=== PATIENT | male | born 1990 | race Hispanic/Latino ===

== ENCOUNTER 2019-07-29 16:22 | Emergency (ER) | payer BC ==
--- OUTSIDE RECORDS SUMMARY | 2019-07-29 16:25 | XMS REPORT ---
:1990 Author Organization [facility] Address [address] [place] [address] Care Team Providers Name Role Phone UNKNOWN, REFFERING Primary Care Provider Unavailable ROSA WATKINS Unavailable Unavailable Payers Payer Name Policy Type Policy Number Effective Date Expiration Date Problems This patient has no known problems. Allergies, Adverse Reactions, Alerts Allergy Allergy Status Severity Reaction(s) Onset Inactive Treating Comments Name Type Date Date Clinician No Known DA Active U 2018-10 Allergies -11 00:00:0 0 Medications This patient has no known medications. Encounters Start End Encounter Admission Attending Care Care Encounter Date/Time Date/Time Type Type Clinicians Facility Department ID 2017-08-23 2017-08-23 Emergency E ROSA WATKINS [facility] [id number] 07:59:00 07:59:00 Results Test Description Test Time Test Comments Text Results Atomic Results Result Comments STOMACH,RESECTION 2019-03-09 RUN DATE: NOT TUMOR 17:02:00 03/09/19 [place] - Lab PAGE 1 RUN TIME: 1702 Specimen Inquiry RUN USER: INTERFACE PATIENT: DOMENIOC CEJA LOC: [place] #: [id number] AGE/SX: 28/M ROOM: [facility] RE03/07/19REG DR: Chaparro Bai MD : 86 BED: A DIS: 03/09/19 STATUS: DIS IN TLOC: SPEC #: [id number] RECD: 03/07/19 STATUS: MEJIA [facility] # : [id number] JAMES: 03/07/[address] [facility] [address]: Chaparro Bai MD ENTERED: 03/07/19 SP TYPE: STOM NOT OTHR DR: Ernesto Willams MD, [place] A MDORDERED: GROSS COPIES TO: Chaparro Bai MD [address] [place] [address] Ernesto Willams MD [address] [place], [place] [id number] [place] [address] [place] [address] [address] [place], [place] [address] PROCEDURES: GROSS (03/09/19) TISSUES: STOMACH, NOS - PORTION CLINICAL HISTORY COLLECTION DATE: 03/07/19 [facility] FINAL DIAGNOSIS Stomach, sleeve gastrectomy: UNREMARKABLE GASTRIC MUCOSA AND MUSCULAR WALL RRSanthosh/mike Harman [id number] CONTINUED ON NEXT PAGE RUN DATE: 03/09/19 [place] [facility] PAGE 2 RUN TIME: 1702 Specimen Inquiry RUN USER: INTERFACE SPEC #: [id number] PATIENT: DOMENICO CEJA #[id number] (Continued) MACROSCOPIC The specimen is received in formalin, labeled with the patient's name, identified as "portion of stomach". It consists of a portion of stomach which measures 21 x 3.5 x 2 cm with a wall thickness of 0.5 cm. It is stapled along the mucosal margins. The serosal surface is unremarkable. The mucosal folds are unremarkable appearing. A sample of the specimen is submitted for microscopic examination in a single cassette. GROSS PERFORMED AT [facility] [address] [place] [address] [phone] MICROSCOPIC All of the stains, including any controls performed, stain appropriately. MICROSCOPIC PERFORMED AT [facility] [address] [place] [address] [phone])[phone] PERFORMING SITE Diagnosis performed at: [facility] [address] [place] [address] Signed SIGNATURE ON FILE Chandu Caceres MD 03/09 1702 END OF REPORT BASIC METABOLIC PANEL 2019-03-08 05:25:00 Test Item Value Reference Range Comments SODIUM (test code=NA) 137 mmol/L 136-145 POTASSIUM (test code=K) 3.7 mmol/L 3.5-5.1 CHLORIDE (test code=CL) 102.0 mmol/L 98-107 CARBON DIOXIDE (test code=CO2) 26.0 mmol/L 21-32 ANION GAP (test code=GAP) 12.7 10-20 GLUCOSE (test code=GLU) 112 mg/dL 74-106 BLOOD UREA NITROGEN (test 9 mg/dL 7-18 code=BUN) GLOMERULAR FILTRATION RATE (test > 60 mL/min >=60 Estimated GFR by using Modified code=GFR) MDRD formula.Chronic kidney disease is defined as either kidney damageor GFR <60 mL/min/1.73 m2 for >3 months. CREATININE (test code=CREAT) 0.80 mg/dL 0.7-1.3 BUN/CREATININE RATIO (test 11.3 10-20 code=BUN/CREA) CALCIUM (test code=CA) 8.3 mg/dL 8.5-10.1 BASIC METABOLIC [id number] 05:15:00 Test Item Value Reference Range Comments SODIUM (test code=NA) 137 mmol/L 136-145 POTASSIUM (test code=K) 3.7 mmol/L 3.5-5.1 CHLORIDE (test code=CL) 102.0 mmol/L 98-107 CARBON DIOXIDE (test code=CO2) mmol/L 21-32 ANION GAP (test code=GAP) 10-20 GLUCOSE (test code=GLU) mg/dL 74-106 BLOOD UREA NITROGEN (test code=BUN) mg/dL 7-18 GLOMERULAR FILTRATION RATE (test code=GFR) mL/min >=60 CREATININE (test code=CREAT) mg/dL 0.7-1.3 BUN/CREATININE RATIO (test code=BUN/CREA) 10-20 CALCIUM (test code=CA) mg/dL 8.5-10.1 CBC W/AUTO [id number] 04:56:00 Test Item Value Reference Range Comments WHITE BLOOD CELL (test code=WBC) 12.6 K/mm3 4.5-12.5 RED BLOOD CELL (test code=RBC) 4.84 mill/mm3 4.0-5.8 HEMOGLOBIN (test code=HGB) 14.4 gram/dL 13.0-17.5 HEMATOCRIT (test code=HCT) 41.8 % 42.0-52.0 MEAN CELL VOLUME (test code=MCV) 86.4 fL 80-98 MEAN CELL HGB (test code=MCH) 29.8 picogram 27.0-33.0 MEAN CELL HGB CONCETRATION (test code=MCHC) 34.4 gram/dL 33.0-36.0 RED CELL DISTRIBUTION WIDTH (test code=RDW) 11.6 % 11.6-16.2 RED CELL DISTRIBUTION WIDTH SD (test 37.0 fL 37.0-51.0 code=RDW-SD) PLATELET COUNT (test code=PLT) 177 K/mm3 150-450 MEAN PLATELET VOLUME (test code=MPV) 10.9 fL 6.7-11.0 NEUTROPHIL % (test code=NT%) 78.5 % 39.0-69.0 IMMATURE GRANULOCYTE % (test code=IG%) 0.4 % 0.0-5.0 LYMPHOCYTE % (test code=LY%) 13.6 % 25.0-55.0 MONOCYTE % (test code=MO%) 7.3 % 0.0-10.0 EOSINOPHIL % (test code=EO%) 0.1 % 0.0-5.0 BASOPHIL % (test code=BA%) 0.1 % 0.0-1.0 NUCLEATED RBC % (test code=NRBC%) 0.0 % 0-0 NEUTROPHIL # (test code=NT#) 9.93 K/mm3 1.8-7.7 IMMATURE GRANULOCYTE # (test code=IG#) 0.05 x10 3/uL 0-0.03 LYMPHOCYTE # (test code=LY#) 1.72 K/mm3 1.0-5.0 MONOCYTE # (test code=MO#) 0.92 K/mm3 0-0.8 EOSINOPHIL # (test code=EO#) 0.01 K/mm3 0.0-0.5 BASOPHIL # (test code=BA#) 0.01 K/mm3 0.0-0.2 NUCLEATED RBC # (test code=NRBC#) 0.00 K/mm3 0.0-0.1 MANUAL DIFF REQUIRED (test code=MDIFF) NO CBC W/AUTO [id number] 04:54:00 Test Item Value Reference Range Comments WHITE BLOOD CELL (test code=WBC) K/mm3 4.5-12.5 RED BLOOD CELL (test code=RBC) mill/mm3 4.0-5.8 HEMOGLOBIN (test code=HGB) 14.4 gram/dL 13.0-17.5 HEMATOCRIT (test code=HCT) % 42.0-52.0 MEAN CELL VOLUME (test code=MCV) fL 80-98 MEAN CELL HGB (test code=MCH) picogram 27.0-33.0 MEAN CELL HGB CONCETRATION (test code=MCHC) gram/dL 33.0-36.0 RED CELL DISTRIBUTION WIDTH (test code=RDW) % 11.6-16.2 RED CELL DISTRIBUTION WIDTH SD (test fL 37.0-51.0 code=RDW-SD) PLATELET COUNT (test code=PLT) K/mm3 150-450 MEAN PLATELET VOLUME (test code=MPV) fL 6.7-11.0 NEUTROPHIL % (test code=NT%) % 39.0-69.0 IMMATURE GRANULOCYTE % (test code=IG%) % 0.0-5.0 LYMPHOCYTE % (test code=LY%) % 25.0-55.0 MONOCYTE % (test code=MO%) % 0.0-10.0 EOSINOPHIL % (test code=EO%) % 0.0-5.0 BASOPHIL % (test code=BA%) % 0.0-1.0 NEUTROPHIL # (test code=NT#) K/mm3 1.8-7.7 LYMPHOCYTE # (test code=LY#) K/mm3 1.0-5.0 MONOCYTE # (test code=MO#) K/mm3 0-0.8 EOSINOPHIL # (test code=EO#) K/mm3 0.0-0.5 BASOPHIL # (test code=BA#) K/mm3 0.0-0.2 COMPREHENSIVE METABOLIC [id number] 11:14:00 Test Item Value Reference Range Comments SODIUM (test code=NA) 137 mmol/L 136-145 POTASSIUM (test code=K) 3.7 mmol/L 3.5-5.1 CHLORIDE (test code=CL) 102.0 mmol/L 98-107 CARBON DIOXIDE (test 28.0 mmol/L 21-32 code=CO2) ANION GAP (test code=GAP) 10.7 10-20 GLUCOSE (test code=GLU) 97 mg/dL 74-106 BLOOD UREA NITROGEN (test 13 mg/dL 7-18 code=BUN) GLOMERULAR FILTRATION RATE > 60 mL/min >=60 Estimated GFR by using (test code=GFR) Modified MDRD formula.Chronic kidney disease is defined as either kidney damageor GFR <60 mL/min/1.73 m2 for >3 months. CREATININE (test code=CREAT) 1.00 mg/dL 0.7-1.3 BUN/CREATININE RATIO (test 13.4 10-20 code=BUN/CREA) TOTAL PROTEIN (test 8.3 gram/dL 6.4-8.2 code=PROT) ALBUMIN (test code=ALB) 4.4 g/dL 3.4-5.0 GLOBULIN (test code=GLOB) 3.9 gram/dL 2.7-4.2 ALBUMIN/GLOBULIN RATIO (test 1.1 0.75-1.50 code=A/G) CALCIUM (test code=CA) 9.4 mg/dL 8.5-10.1 BILIRUBIN TOTAL (test 0.70 mg/dL 0.0-1.0 code=BILT) SGOT/AST (test code=AST) 42 IUnit/L 15-37 SGPT/ALT (test code=ALT) 133 IUnit/L 12-78 ALKALINE PHOSPHATASE TOTAL 86 IUnit/L 45-117 Note change in reference (test code=ALKP) range due to change in reagent. WILL NEED RETYPE-V.LAB.[facility] 02/28/19 0926COMPREHENSIVE METABOLIC [id number] 11:08:00 Test Item Value Reference Range Comments SODIUM (test code=NA) 137 mmol/L 136-145 POTASSIUM (test code=K) 3.7 mmol/L 3.5-5.1 CHLORIDE (test code=CL) 102.0 mmol/L 98-107 CARBON DIOXIDE (test code=CO2) mmol/L 21-32 ANION GAP (test code=GAP) 10-20 GLUCOSE (test code=GLU) mg/dL 74-106 BLOOD UREA NITROGEN (test code=BUN) mg/dL 7-18 GLOMERULAR FILTRATION RATE (test code=GFR) mL/min >=60 CREATININE (test code=CREAT) mg/dL 0.7-1.3 BUN/CREATININE RATIO (test code=BUN/CREA) 10-20 TOTAL PROTEIN (test code=PROT) gram/dL 6.4-8.2 ALBUMIN (test code=ALB) g/dL 3.4-5.0 GLOBULIN (test code=GLOB) gram/dL 2.7-4.2 ALBUMIN/GLOBULIN RATIO (test code=A/G) 0.75-1.50 CALCIUM (test code=CA) mg/dL 8.5-10.1 BILIRUBIN TOTAL (test code=BILT) mg/dL 0.0-1.0 SGOT/AST (test code=AST) IUnit/L 15-37 SGPT/ALT (test code=ALT) IUnit/L 12-78 ALKALINE PHOSPHATASE TOTAL (test code=ALKP) IUnit/L 45-117 WILL NEED RETYPE-V.LAB.[facility] 02/28/19 0926URINALYSIS [id number] 10:12:00 Test Item Value Reference Range Comments UA COLOR (test code=COLU) YELLOW YELLOW UA APPEARANCE (test code=APPU) CLEAR CLEAR UA GLUCOSE DIPSTICK (test code=DGLUU) NEGATIVE mg/dL NEGATIVE UA BILIRUBIN DIPSTICK (test code=BILU) NEGATIVE NEGATIVE UA KETONE DIPSTICK (test code=KETU) NEGATIVE mg/dL NEGATIVE UA SPECIFIC GRAVITY (test code=SGU) 1.015 1.001-1.035 UA BLOOD DIPSTICK (test code=EM) NEGATIVE NEGATIVE UA PH DIPSTICK (test code=TONYA) 7.0 5.0-8.0 UA PROTEIN DIPSTICK (test code=PROU) TRACE (15) mg/dL Neg-15 UA UROBILINIOGEN DIPSTICK (test 1 mg/dL (1+) mg/dL 0.0-0.2 code=URO) UA NITRITE DIPSTICK (test code=KENNY) NEGATIVE NEGATIVE UA LEUKOCYTE ESTERASE W REFLEX (test NEGATIVE NEGATIVE code=LEUUR) UA WBC (test code=WBCU) 0-5 per HPF 0-5 UA RBC (test code=RBCU) 0-2 #/HPF 0-5 UA EPITHELIAL CELLS (test code=EPIU) FEW per HPF FEW UA BACTERIA (test code=BACU) FEW #/HPF NONE UA MUCUS (test code=MUCU) FEW #/LPF FEW WILL NEED RETYPE-V.LAB.[facility] 02/28/19 0926URINALYSIS [id number] 10:11:00 Test Item Value Reference Range Comments UA COLOR (test code=COLU) YELLOW UA APPEARANCE (test code=APPU) CLEAR UA BILIRUBIN DIPSTICK (test code=BILU) NEGATIVE UA SPECIFIC GRAVITY (test code=SGU) 1.001-1.035 UA PH DIPSTICK (test code=TONYA) 5.0-8.0 UA UROBILINIOGEN DIPSTICK (test code=URO) mg/dL 0.0-0.2 UA NITRITE DIPSTICK (test code=KENNY) NEGATIVE UA LEUKOCYTE ESTERASE W REFLEX (test code=LEUUR) NEGATIVE UA WBC (test code=WBCU) 0-5 per HPF 0-5 UA RBC (test code=RBCU) 0-2 #/HPF 0-5 UA EPITHELIAL CELLS (test code=EPIU) FEW per HPF FEW UA BACTERIA (test code=BACU) FEW #/HPF NONE UA MUCUS (test code=MUCU) FEW #/LPF FEW WILL NEED RETYPE-V.LAB.[facility] 02/28/19 0926PROTHROMBIN [id number] 10:00:00 Test Item Value Reference Range Comments PROTHROMBIN TIME PATIENT 11.8 seconds 9.0-14.0 (test code=PTP) INTERNATIONAL NORMAL RATIO 1.0 0.8-1.2 The therapeutic range for (test code=INR) oral anticoagulant therapy formost indications is an international normalized ratio (INR)of between 2.0 and 3.0. The recommended therapeutic INRrange for various clinical situations is listed below: Clinical Situation INR range ____ Pulmonary embolism treatment (2.0-3.0)Venous thrombosis treatmentVenous thrombosis prophylaxis (high risk surgery)Prevention of systemic embolism from: Acute myocardial infarction Valvular heart disease Atrial fibrillation Mechanical prosthetic heart valves (2.5-3.5) WILL NEED RETYPE-V.LAB.[facility] 02/28/19 0926THROMBOPLASTIN TIME [id number] 10 :00:00 Test Item Value Reference Range Comments THROMBOPLASTIN TIME PARTIAL (test code=PTT) 30.1 seconds 25.0-36.5 WILL NEED RETYPE-V.LAB.[facility] 02/28/19 0926CBC W/AUTO [id number] 09:48:00 Test Item Value Reference Range Comments WHITE BLOOD CELL (test code=WBC) 7.0 K/mm3 4.5-12.5 RED BLOOD CELL (test code=RBC) 5.40 mill/mm3 4.0-5.8 HEMOGLOBIN (test code=HGB) 15.9 gram/dL 13.0-17.5 HEMATOCRIT (test code=HCT) 46.5 % 42.0-52.0 MEAN CELL VOLUME (test code=MCV) 86.1 fL 80-98 MEAN CELL HGB (test code=MCH) 29.4 picogram 27.0-33.0 MEAN CELL HGB CONCETRATION (test code=MCHC) 34.2 gram/dL 33.0-36.0 RED CELL DISTRIBUTION WIDTH (test code=RDW) 11.8 % 11.6-16.2 RED CELL DISTRIBUTION WIDTH SD (test 36.6 fL 37.0-51.0 code=RDW-SD) PLATELET COUNT (test code=PLT) 184 K/mm3 150-450 MEAN PLATELET VOLUME (test code=MPV) 10.8 fL 6.7-11.0 NEUTROPHIL % (test code=NT%) 55.1 % 39.0-69.0 IMMATURE GRANULOCYTE % (test code=IG%) 0.3 % 0.0-5.0 LYMPHOCYTE % (test code=LY%) 32.8 % 25.0-55.0 MONOCYTE % (test code=MO%) 6.9 % 0.0-10.0 EOSINOPHIL % (test code=EO%) 4.0 % 0.0-5.0 BASOPHIL % (test code=BA%) 0.9 % 0.0-1.0 NUCLEATED RBC % (test code=NRBC%) 0.0 % 0-0 NEUTROPHIL # (test code=NT#) 3.84 K/mm3 1.8-7.7 IMMATURE GRANULOCYTE # (test code=IG#) 0.02 x10 3/uL 0-0.03 LYMPHOCYTE # (test code=LY#) 2.28 K/mm3 1.0-5.0 MONOCYTE # (test code=MO#) 0.48 K/mm3 0-0.8 EOSINOPHIL # (test code=EO#) 0.28 K/mm3 0.0-0.5 BASOPHIL # (test code=BA#) 0.06 K/mm3 0.0-0.2 NUCLEATED RBC # (test code=NRBC#) 0.00 K/mm3 0.0-0.1 MANUAL DIFF REQUIRED (test code=MDIFF) NO WILL NEED RETYPE-V.LAB.[facility] 02/28/19 0926CBC W/AUTO [id number] 09:41:00 Test Item Value Reference Range Comments WHITE BLOOD CELL (test code=WBC) K/mm3 4.5-12.5 RED BLOOD CELL (test code=RBC) mill/mm3 4.0-5.8 HEMOGLOBIN (test code=HGB) 15.9 gram/dL 13.0-17.5 HEMATOCRIT (test code=HCT) 46.5 % 42.0-52.0 MEAN CELL VOLUME (test code=MCV) fL 80-98 MEAN CELL HGB (test code=MCH) picogram 27.0-33.0 MEAN CELL HGB CONCETRATION (test code=MCHC) gram/dL 33.0-36.0 RED CELL DISTRIBUTION WIDTH (test code=RDW) % 11.6-16.2 RED CELL DISTRIBUTION WIDTH SD (test fL 37.0-51.0 code=RDW-SD) PLATELET COUNT (test code=PLT) K/mm3 150-450 MEAN PLATELET VOLUME (test code=MPV) fL 6.7-11.0 NEUTROPHIL % (test code=NT%) % 39.0-69.0 IMMATURE GRANULOCYTE % (test code=IG%) % 0.0-5.0 LYMPHOCYTE % (test code=LY%) % 25.0-55.0 MONOCYTE % (test code=MO%) % 0.0-10.0 EOSINOPHIL % (test code=EO%) % 0.0-5.0 BASOPHIL % (test code=BA%) % 0.0-1.0 NEUTROPHIL # (test code=NT#) K/mm3 1.8-7.7 LYMPHOCYTE # (test code=LY#) K/mm3 1.0-5.0 MONOCYTE # (test code=MO#) K/mm3 0-0.8 EOSINOPHIL # (test code=EO#) K/mm3 0.0-0.5 BASOPHIL # (test code=BA#) K/mm3 0.0-0.2 WILL NEED RETYPE-V.LAB.[facility] 02/28/19 0926- XR [facility] 2 [id number] 10:12:00 FAX: Chaparro Givens MD [phone] [place]: O St: PRE FAX: Ernesto Carter MD [phone] Name: DOMENICO CEJA [facility] : 1990 Age/S: 28/M [place] Weir Unit #: [id number] Loc: [place] [address] Phys: Chaparro Bai MD Acct: [id number] Dis Date: Status: PRE IN PHONE #: [phone] Exam Date: 02/28/2019 0945 FAX #: [phone] Reason: PRE OP EXAMS: CPT CODE: [id number] XR CHEST 2 V 14542 HISTORY: Preop. COMPARISON: Chest x-ray from October 11, 2018. AP and lateral view of the chest: No acute infiltrates, effusion or congestion. Cardiac and the mediastinal silhouette are normal. IMPRESSION: No acute infiltrates, effusion or congestion. at 1012 Reported and signed by: Benson Huynh M.D. CC: Chaparro Bai M.D.; Ernesto Willams MD Technologist: UMA CARRILLO RT (R) Trnscrd Date/Time/By: 02/28/2019 (1012) : By: [email or web address] Orig Print D/T: S: 02/28/2019 (1015) PAGE 1 Signed ReportCOMPREHENSIVE METABOLIC [id number] 15:19:00 Test Item Value Reference Range Comments SODIUM (test code=NA) 136 mmol/L 136-145 POTASSIUM (test code=K) 4.0 mmol/L 3.5-5.1 CHLORIDE (test code=CL) 99.0 mmol/L 98-107 CARBON DIOXIDE (test code=CO2) 28.0 mmol/L 21-32 ANION GAP (test code=GAP) 13.0 10-20 GLUCOSE (test code=GLU) 114 mg/dL 74-106 BLOOD UREA NITROGEN (test 13 mg/dL 7-18 code=BUN) GLOMERULAR FILTRATION RATE > 60 mL/min >=60 Estimated GFR by using (test code=GFR) Modified MDRD formula.Chronic kidney disease is defined as either kidney damageor GFR <60 mL/min/1.73 m2 for >3 months. CREATININE (test code=CREAT) 0.90 mg/dL 0.7-1.3 BUN/CREATININE RATIO (test 14.4 10-20 code=BUN/CREA) TOTAL PROTEIN (test code=PROT) 8.2 gram/dL 6.4-8.2 ALBUMIN (test code=ALB) 4.2 g/dL 3.4-5.0 GLOBULIN (test code=GLOB) 4.0 gram/dL 2.7-4.2 ALBUMIN/GLOBULIN RATIO (test 1.1 0.75-1.50 code=A/G) CALCIUM (test code=CA) 9.1 mg/dL 8.5-10.1 BILIRUBIN TOTAL (test 0.70 mg/dL 0.0-1.0 code=BILT) SGOT/AST (test code=AST) 29 IUnit/L 15-37 SGPT/ALT (test code=ALT) 85 IUnit/L 12-78 ALKALINE PHOSPHATASE TOTAL 85 IUnit/L 45-117 Note change in reference (test code=ALKP) range due to change in reagent. 0820LIPID PROFILE (CORONARY RISK)2018-10-15 15:19:00 Test Item Value Reference Range Comments TRIGLYCERIDES (test code=TRIG) 99 mg/dL 20-150 CHOLESTEROL (test code=CHOL) 190 mg/dL 0-200 CHOLESTEROL/HDL RATIO (test 5.0 RATIO 0-4.9 RISK ASSOCIATED WITH CHOL/HDL code=CHOLHDL) RATIOS: Risk Male Female1/2 AVERAGE 3.43 3.27AVERAGE 4.97 4.442X AVERAGE 9.55 7.053X AVERAGE 23.39 11.04 REFERENCE VALUE IS RELATED TO RISK LEVELS ASRECOMMENDED BY THE RIKKI. HEART, LUNG, AND BLOOD INST. HDL CHOLESTEROL (test 36 mg/dL 40-60 code=HDL) LIPOPROTEIN LDL (test 131 mg/dL 100-129 RN PERSONNEL, CONTACT code=LDL) PHYSICIAN IMMEDIATELY IF THIS IS A STROKE, AMI OR CAROTID STENOSIS PATIENT WHEN THE LDL >100 (1ST OCCURENCE, THIS ADMISSION) Reference Interval: mg/dL mmol/L -------Optimal <100 <2.6Near/above optimal 100-129 2.6-3.3Borderline High 130-159 3.4-4.1High 160-189 4.1-4.9Very High >=190 >=4.9=========This LDL result is a direct measurement.========= 0820HEPATIC FUNCTION [id number] 15:19:00 Test Item Value Reference Range Comments BILIRUBIN DIRECT (test code=BILD) 0.15 mg/dL 0.0-0.20 0820VITAMIN [id number] 15:19:00 Test Item Value Reference Range Comments VITAMIN B12 (test code=VITB12) 1111 pg/mL 193-986 0820FOLIC [id number] 15:19:00 Test Item Value Reference Range Comments FOLIC ACID (test code=FOL) 14.4 ng/mL 3.10-17.50 0820THYROID PROFILE [id number] 15:19:00 Test Item Value Reference Range Comments T3 UPTAKE (test code=T3UP) 32.0 % 30.0-40.0 T4 (THYROXINE) (test code=T4) 11.7 ug/dL 4.5-13.9 T7 (FREE THYROXINE INDEX) 3.74 FTI 1.3-5.1 (test code=T7) THYROID STIMULATING HORMONE 2.510 uIU/mL 0.36-3.74 TSH REFERENCE RANGES: (test code=TSH) EUTHYROID: 0.35 - 4.3 mIU/mL HYPO : > 5.5 mIU/mL HYPER : < 0.35 mIU/mL 0820VIT B1 WHOLE [id number] 15:19:00 Test Item Value Reference Range Comments VIT B1 WHOLE BLOOD 84.0 nmol/L 66.5-200.0 This test was developed and its (test code=UZDA9ML) performance characteristicsdetermined by [employer]. It has not been cleared orapproved by the Food and Drug Administration.Performed At: [facility] [id number] Sanjai MD Ph:[phone] 0820AB HIV 1 13:55:00 Test Item Value Reference Range Comments AB HIV 1 2 (test Nonreactive NonReactive It is recognized that currently code=LFJ45QG) available assays for thedetection of antibodies to HIV-1 and/or HIV-2 may notdetect all infected individuals. A negative test result doesnot exclude the possibility of exposure to or infection withHIV. HIV antibodies may be undetectable in some stages ofthe infection and in some clinical conditions. [id number] 10:24:00 Test Item Value Reference Range Comments GLYCOSYLATED HEMOGLOBIN (HA1C) (test code=GLYHGB) 5.5 % HbA1 4.8-6.0 ESTIMATED AVERAGE GLUCOSE (test code=EAG) 111 MG/DL 0820AB HELICOBACTER [id number] 09:49:00 Test Item Value Reference Range Comments AB HELICOBACTER IGG (test code=HELIGAB) NEGATIVE NEGATIVE 0820COMPREHENSIVE METABOLIC [id number] 09:42:00 Test Item Value Reference Range Comments SODIUM (test code=NA) 136 mmol/L 136-145 POTASSIUM (test code=K) 4.0 mmol/L 3.5-5.1 CHLORIDE (test code=CL) 99.0 mmol/L 98-107 CARBON DIOXIDE (test code=CO2) 28.0 mmol/L 21-32 ANION GAP (test code=GAP) 13.0 10-20 GLUCOSE (test code=GLU) 114 mg/dL 74-106 BLOOD UREA NITROGEN (test 13 mg/dL 7-18 code=BUN) GLOMERULAR FILTRATION RATE > 60 mL/min >=60 Estimated GFR by using (test code=GFR) Modified MDRD formula.Chronic kidney disease is defined as either kidney damageor GFR <60 mL/min/1.73 m2 for >3 months. CREATININE (test code=CREAT) 0.90 mg/dL 0.7-1.3 BUN/CREATININE RATIO (test 14.4 10-20 code=BUN/CREA) TOTAL PROTEIN (test code=PROT) 8.2 gram/dL 6.4-8.2 ALBUMIN (test code=ALB) 4.2 g/dL 3.4-5.0 GLOBULIN (test code=GLOB) 4.0 gram/dL 2.7-4.2 ALBUMIN/GLOBULIN RATIO (test 1.1 0.75-1.50 code=A/G) CALCIUM (test code=CA) 9.1 mg/dL 8.5-10.1 BILIRUBIN TOTAL (test 0.70 mg/dL 0.0-1.0 code=BILT) SGOT/AST (test code=AST) 29 IUnit/L 15-37 SGPT/ALT (test code=ALT) 85 IUnit/L 12-78 ALKALINE PHOSPHATASE TOTAL 85 IUnit/L 45-117 Note change in reference (test code=ALKP) range due to change in reagent. 0820LIPID PROFILE (CORONARY RISK)2018-10-11 09:42:00 Test Item Value Reference Range Comments TRIGLYCERIDES (test code=TRIG) 99 mg/dL 20-150 CHOLESTEROL (test code=CHOL) 190 mg/dL 0-200 CHOLESTEROL/HDL RATIO (test 5.0 RATIO 0-4.9 RISK ASSOCIATED WITH CHOL/HDL code=CHOLHDL) RATIOS: Risk Male Female1/2 AVERAGE 3.43 3.27AVERAGE 4.97 4.442X AVERAGE 9.55 7.053X AVERAGE 23.39 11.04 REFERENCE VALUE IS RELATED TO RISK LEVELS ASRECOMMENDED BY THE [facility]. HEART, LUNG, AND BLOOD INST. HDL CHOLESTEROL (test 36 mg/dL 40-60 code=HDL) LIPOPROTEIN LDL (test 131 mg/dL 100-129 RN PERSONNEL, CONTACT code=LDL) PHYSICIAN IMMEDIATELY IF THIS IS A STROKE, AMI OR CAROTID STENOSIS PATIENT WHEN THE LDL >100 (1ST OCCURENCE, THIS ADMISSION) Reference Interval: mg/dL mmol/L -------Optimal <100 <2.6Near/above optimal 100-129 2.6-3.3Borderline High 130-159 3.4-4.1High 160-189 4.1-4.9Very High >=190 >=4.9=========This LDL result is a direct measurement.========= 0820HEPATIC FUNCTION [id number] 09:42:00 Test Item Value Reference Range Comments BILIRUBIN DIRECT (test code=BILD) 0.15 mg/dL 0.0-0.20 0820VITAMIN [id number] 09:42:00 Test Item Value Reference Range Comments VITAMIN B12 (test code=VITB12) 1111 pg/mL 193-986 0820FOLIC [id number] 09:42:00 Test Item Value Reference Range Comments FOLIC ACID (test code=FOL) 14.4 ng/mL 3.10-17.50 0820THYROID PROFILE [id number] 09:42:00 Test Item Value Reference Range Comments T3 UPTAKE (test code=T3UP) 32.0 % 30.0-40.0 T4 (THYROXINE) (test code=T4) 11.7 ug/dL 4.5-13.9 T7 (FREE THYROXINE INDEX) 3.74 FTI 1.3-5.1 (test code=T7) THYROID STIMULATING HORMONE 2.510 uIU/mL 0.36-3.74 TSH REFERENCE RANGES: (test code=TSH) EUTHYROID: 0.35 - 4.3 mIU/mL HYPO : > 5.5 mIU/mL HYPER : < 0.35 mIU/mL 0820VIT B1 WHOLE [id number] 09:42:00 Test Item Value Reference Range Comments VIT B1 WHOLE BLOOD (test code=PVDO0WS) nmol/L 87-280 0820URINALYSIS [id number] 09:39:00 Test Item Value Reference Range Comments UA COLOR (test code=COLU) LIGHT YELLOW YELLOW UA APPEARANCE (test code=APPU) CLEAR CLEAR UA GLUCOSE DIPSTICK (test code=DGLUU) NEGATIVE mg/dL NEGATIVE UA BILIRUBIN DIPSTICK (test code=BILU) NEGATIVE mg/dL NEGATIVE UA KETONE DIPSTICK (test code=KETU) Negative mg/dL NEGATIVE UA SPECIFIC GRAVITY (test code=SGU) 1.020 1.001-1.035 UA BLOOD DIPSTICK (test code=EM) Negative NEGATIVE UA PH DIPSTICK (test code=TONYA) 5.0 5.0-8.0 UA PROTEIN DIPSTICK (test code=PROU) Negative mg/dL NEGATIVE UA UROBILINIOGEN DIPSTICK (test code=URO) NEGATIVE mg/dL NEGATIVE UA NITRITE DIPSTICK (test code=KENNY) NEGATIVE NEGATIVE UA LEUKOCYTE ESTERASE W REFLEX (test NEGATIVE NEGATIVE code=LEUUR) UA WBC (test code=WBCU) 0-5 #/HPF 0-5 UA MUCUS (test code=MUCU) FEW #/LPF FEW 0820URINALYSIS [id number] 09:12:00 Test Item Value Reference Range Comments UA COLOR (test code=COLU) LIGHT YELLOW YELLOW UA APPEARANCE (test code=APPU) CLEAR CLEAR UA GLUCOSE DIPSTICK (test code=DGLUU) NEGATIVE mg/dL NEGATIVE UA BILIRUBIN DIPSTICK (test code=BILU) NEGATIVE mg/dL NEGATIVE UA KETONE DIPSTICK (test code=KETU) Negative mg/dL NEGATIVE UA SPECIFIC GRAVITY (test code=SGU) 1.020 1.001-1.035 UA BLOOD DIPSTICK (test code=EM) Negative NEGATIVE UA PH DIPSTICK (test code=TONYA) 5.0 5.0-8.0 UA PROTEIN DIPSTICK (test code=PROU) Negative mg/dL NEGATIVE UA UROBILINIOGEN DIPSTICK (test code=URO) NEGATIVE mg/dL NEGATIVE UA NITRITE DIPSTICK (test code=KENNY) NEGATIVE NEGATIVE UA LEUKOCYTE ESTERASE W REFLEX (test NEGATIVE NEGATIVE code=LEUUR) UA WBC (test code=WBCU) per HPF 0-5 0820COMPREHENSIVE METABOLIC [id number] 09:06:00 Test Item Value Reference Range Comments SODIUM (test code=NA) 136 mmol/L 136-145 POTASSIUM (test code=K) 4.0 mmol/L 3.5-5.1 CHLORIDE (test code=CL) 99.0 mmol/L 98-107 CARBON DIOXIDE (test code=CO2) mmol/L 21-32 ANION GAP (test code=GAP) 10-20 GLUCOSE (test code=GLU) mg/dL 74-106 BLOOD UREA NITROGEN (test code=BUN) mg/dL 7-18 GLOMERULAR FILTRATION RATE (test code=GFR) mL/min >=60 CREATININE (test code=CREAT) mg/dL 0.7-1.3 BUN/CREATININE RATIO (test code=BUN/CREA) 10-20 TOTAL PROTEIN (test code=PROT) gram/dL 6.4-8.2 ALBUMIN (test code=ALB) g/dL 3.4-5.0 GLOBULIN (test code=GLOB) gram/dL 2.7-4.2 ALBUMIN/GLOBULIN RATIO (test code=A/G) 0.75-1.50 CALCIUM (test code=CA) mg/dL 8.5-10.1 BILIRUBIN TOTAL (test code=BILT) mg/dL 0.0-1.0 SGOT/AST (test code=AST) IUnit/L 15-37 SGPT/ALT (test code=ALT) IUnit/L 12-78 ALKALINE PHOSPHATASE TOTAL (test code=ALKP) IUnit/L 45-117 0820LIPID PROFILE (CORONARY RISK)2018-10-11 09:06:00 Test Item Value Reference Range Comments TRIGLYCERIDES (test code=TRIG) mg/dL 20-150 CHOLESTEROL (test code=CHOL) mg/dL 0-200 CHOLESTEROL/HDL RATIO (test code=CHOLHDL) RATIO 0-4.9 HDL CHOLESTEROL (test code=HDL) mg/dL 40-60 LIPOPROTEIN LDL (test code=LDL) mg/dL 100-129 0820HEPATIC FUNCTION [id number] 09:06:00 Test Item Value Reference Range Comments BILIRUBIN DIRECT (test code=BILD) mg/dL 0.0-0.20 0820VITAMIN [id number] 09:06:00 Test Item Value Reference Range Comments VITAMIN B12 (test code=VITB12) pg/mL 193-986 0820FOLIC [id number] 09:06:00 Test Item Value Reference Range Comments FOLIC ACID (test code=FOL) ng/mL 3.10-17.50 0820THYROID PROFILE [id number] 09:06:00 Test Item Value Reference Range Comments T3 UPTAKE (test code=T3UP) % 30.0-40.0 T4 (THYROXINE) (test code=T4) ug/dL 4.5-13.9 T7 (FREE THYROXINE INDEX) (test code=T7) FTI 1.3-5.1 THYROID STIMULATING HORMONE (test code=TSH) uIU/mL 0.36-3.74 0820VIT B1 WHOLE [id number] 09:06:00 Test Item Value Reference Range Comments VIT B1 WHOLE BLOOD (test code=PDWH7NW) nmol/L 87-280 0820PROTHROMBIN [id number] 09:01:00 Test Item Value Reference Range Comments PROTHROMBIN TIME PATIENT 11.7 seconds 9.0-14.0 (test code=PTP) INTERNATIONAL NORMAL RATIO 1.0 0.8-1.2 The therapeutic range for (test code=INR) oral anticoagulant therapy formost indications is an international normalized ratio (INR)of between 2.0 and 3.0. The recommended therapeutic INRrange for various clinical situations is listed below: Clinical Situation INR range ____ Pulmonary embolism treatment (2.0-3.0)Venous thrombosis treatmentVenous thrombosis prophylaxis (high risk surgery)Prevention of systemic embolism from: Acute myocardial infarction Valvular heart disease Atrial fibrillation Mechanical prosthetic heart valves (2.5-3.5) 0820THROMBOPLASTIN TIME [id number] 09:01:00 Test Item Value Reference Range Comments THROMBOPLASTIN TIME PARTIAL (test code=PTT) 26.7 seconds 25.0-36.5 0820CBC W/AUTO [id number] 08:55:00 Test Item Value Reference Range Comments WHITE BLOOD CELL (test code=WBC) 6.4 K/mm3 4.5-12.5 RED BLOOD CELL (test code=RBC) 5.59 mill/mm3 4.0-5.8 HEMOGLOBIN (test code=HGB) 16.2 gram/dL 13.0-17.5 HEMATOCRIT (test code=HCT) 48.5 % 42.0-52.0 MEAN CELL VOLUME (test code=MCV) 86.8 fL 80-98 MEAN CELL HGB (test code=MCH) 29.0 picogram 27.0-33.0 MEAN CELL HGB CONCETRATION (test code=MCHC) 33.4 gram/dL 33.0-36.0 RED CELL DISTRIBUTION WIDTH (test code=RDW) 12.2 % 11.6-16.2 RED CELL DISTRIBUTION WIDTH SD (test 38.5 fL 37.0-51.0 code=RDW-SD) PLATELET COUNT (test code=PLT) 183 K/mm3 150-450 MEAN PLATELET VOLUME (test code=MPV) 11.2 fL 6.7-11.0 NEUTROPHIL % (test code=NT%) 47.6 % 39.0-69.0 IMMATURE GRANULOCYTE % (test code=IG%) 0.3 % 0.0-5.0 LYMPHOCYTE % (test code=LY%) 38.5 % 25.0-55.0 MONOCYTE % (test code=MO%) 9.1 % 0.0-10.0 EOSINOPHIL % (test code=EO%) 3.6 % 0.0-5.0 BASOPHIL % (test code=BA%) 0.9 % 0.0-1.0 NUCLEATED RBC % (test code=NRBC%) 0.0 % 0-0 NEUTROPHIL # (test code=NT#) 3.03 K/mm3 1.8-7.7 IMMATURE GRANULOCYTE # (test code=IG#) 0.02 x10 3/uL 0-0.03 LYMPHOCYTE # (test code=LY#) 2.45 K/mm3 1.0-5.0 MONOCYTE # (test code=MO#) 0.58 K/mm3 0-0.8 EOSINOPHIL # (test code=EO#) 0.23 K/mm3 0.0-0.5 BASOPHIL # (test code=BA#) 0.06 K/mm3 0.0-0.2 NUCLEATED RBC # (test code=NRBC#) 0.00 K/mm3 0.0-0.1 MANUAL DIFF REQUIRED (test code=MDIFF) NO 0820- XR CHEST 2 [id number] 08:34:00 FAX: Chaparro Givens MD [place]: O St: PRE FAX: Y Ernesto Willams MD [phone] --- Name: DOMENICO CEJA [facility] : 1990 Age/S: 27/M [address] [facility] Unit #: [id number] Loc: [place] [address] Phys: Chaparro Bai MD Acct: [id number] Dis Date: Status: PRE MNC PHONE #: [phone] Exam Date: 10/11/2018829 FAX #: Reason: PRE OP EXAMS: CPT CODE: [id number] XR CHEST 2 V 81378 HISTORY: Preop. COMPARISON: None available. AP and lateral view of the chest: No acute infiltrates, effusion or congestion. Suboptimal inspiration. Dependent changes.Cardiomegaly. IMPRESSION: No acute infiltrates, effusion or congestion. Dependent changes. at 0834 Reported and signed by: Benson Huynh M.D. CC: Chaparro Bai M.D.; Ernesto Willams MD Technologist: RT Nimesh(R) Trnscrd Date/Time/By: 10/11/2018 (0834) : By: [email or web address] Orig Print D/T: S: 10/11/2018 (0838) PAGE 1 Signed ReportCK [id number] 09:39:00 Test Item Value Reference Range Comments CK (test code=CK) 163 U/L 39-308 CKMB (test code=CKMB) 3.1 ng/mL 0.0-4.9 CKMB% (test code=CKMBP) 1.9 % 0.0-3.4 CK [id number] 09:39:00 Test Item Value Reference Range Comments CK (test code=CK) 163 U/L 39-308 Comprehensive Metabolic [id number] 09:39:00 Test Item Value Reference Range Comments Sodium (test code=NA) 138 mmol/L 135-145 Potassium (test code=K) 3.7 mmol/L 3.5-5.1 Chloride (test code=CL) 99 mmol/L 98-105 Carbon Dioxide (test 27 mmol/L 22-29 code=CO2) Glucose (test code=GLU) 128 mg/dL 70-115 Blood Urea Nitrogen 11 mg/dL 6-20 (test code=BUN) Creatinine (test 0.8 mg/dL 0.7-1.2 code=CREAT) Calcium (test code=CA) 9.2 mg/dL 8.3-10.5 Prot Total (test 7.5 g/dL 6.4-8.3 code=TP) Albumin (test code=ALB) 4.6 g/dL 3.5-5.2 A/G Ratio (test 1.6 Ratio code=AGRATIO) Globulin (test 2.9 2.9-3.1 code=GLOB) Bili Total (test 0.3 mg/dL 0.1-0.9 code=TBIL) Alk Phos (test 79 U/L 40-129 code=APHOS) AST (test code=AST) 25 U/L 1-40 ALT (test code=ALT) 57 U/L 1-41 BUN/Creatinine Ratio 13.8 (test code=BCRATIO) Anion Gap (test 12 mmol/L 7-16 code=AGAP) Estimated GFR (test >60 mL/min/1.73m2 eGFR (estimated Glomerular code=GFR) Filtration Rate) is an estimated value,calculated from the patient's serum creatinine using the MDRD equation.It is NOT the patient's actual GFR. The eGFR provides a more clinicallyuseful measure of kidney disease than serum creatinine alone.This calculation takes sex and race into account, if the informationis provided. If the race is not provided, and the patient isAfrican-Equatorial [place], multiply by 1.212. If sex is not provided, and thepatient is female, multiply by 0.742. Results for patients <18 years ofage have not been validated by the MDRD study and should be interpretedwith caution.eGFR Result Interpretation:eGFR > or=60 is in the Normal RangeeGFR < 60 may mean kidney diseaseeGFR < 15 may mean kidney failureRanges recommended by the National Kidney Foundation,http://nkdep.nih .gov Troponin [id number] 09:39:00 Test Item Value Reference Range Comments Troponin T (test code=SALENA) <0.010 ng/mL 0.000-0.090 XR CHEST 1 [id number] 09:15:29Exam: AP chestLocation: T5Tpvmrpt: Chest painComparison: NoneFindings:The lungs are clear. The pulmonary vasculature is normal. The heart sizeis normal. The mediastinal silhouette is unremarkable. The bony thoraxis intact.Impression:No acute disease.CBC with [id number] 08:59:00 Test Item Value Reference Range Comments WBC (test code=WBC) 7.1 K/cumm 4.4-10.5 RBC (test code=RBC) 5.13 M/cumm 4.10-5.70 Hemoglobin (test code=HGB) 15.1 gm/dL 13.4-17.4 Hematocrit (test code=HCT) 44.7 % 38.7-52.0 MCV (test code=MCV) 87.1 fL 80-100 MCH (test code=MCH) 29.4 pg 27.0-32.5 MCHC (test code=MCHC) 33.7 g/dL 32.0-37.5 RDW (test code=RDW) 12.7 % 11.5-14.5 Platelet Count (test code=PLTCT) 167 K/cumm 140-440 MPV (test code=MPV) 8.5 fL Diff Method (test code=DIFFM) Auto Neutrophil (test code=NEUT) 64.6 % 36-70 Lymphocyte (test code=LYMPH) 24.8 % 12-44 Monocyte (test code=MONO) 4.0 % 0-11 Eosinophil (test code=EOS) 5.7 % 0-7 Basophil (test code=BASO) 0.9 % 0-2 Neutro Abs (test code=ANEUT) 4.6 K/cumm 1.6-7.4 Lymph Abs (test code=ALYMPH) 1.8 K/cumm 0.5-4.6 [place] Abs (test code=AMONO) 0.3 K/cumm 0.0-1.2 Eos Abs (test code=AEOS) 0.40 K/cumm 0.00-0.74 Baso Abs (test code=ABASO) 0.1 K/cumm 0.00-0.21
[2019-07-29] MEDS ORDERED: METOPROLOL TARTRATE 5 MG/5 ML INJ IV ONE (17:41)
[2019-07-29 17:50] LABS: Absolute Lymphocytes (CBC) 1.9 K/uL (0.7-4.9); Basophils % 0.9 % (0-1.3); Hematocrit 50.7 % (39.6-49.0); Lymphocytes % 23.1 % (15.3-44.8); MPV 9.8 fL (7.6-11.3); RBC Red Blood Cell Count 5.53 M/uL (4.33-5.43)
[2019-07-29 17:55] LABS: Protime INR 0.95
[2019-07-29 18:12] LABS: ALT/SGPT 118 U/L (12-78); AST/SGOT 56 U/L (15-37); Albumin 4.1 g/dL (3.4-5.0); Alkaline Phosphatase 97 U/L (45-117); BUN Blood Urea Nitrogen 9 mg/dL (7-18); Bicarbonate 29 mmol/L (21-32); Bilirubin Direct 0.2 mg/dL (0-0.2); Bilirubin Total 0.5 mg/dL (0.2-1.0); Glucose Level 103 mg/dL (74-106); NT PRO-BNP 54 pg/mL (<125); Potassium 3.6 mmol/L (3.5-5.1); Sodium Level 139 mmol/L (136-145); Troponin (Emerg Dept Use Only) < 0.02 ng/mL (0.0-0.045)
--- NOTE | 2019-07-29 18:54 | RAD REPORT ---
EXAM DESCRIPTION: CT - Chest Angio - 07/29/2019 6:40 pm CLINICAL HISTORY: Chest pain COMPARISON: None. TECHNIQUE: Dynamically enhanced axial 3 mm thick images of the chest were obtained during administra tion of <100> mL Isovue 370 IV contrast. Coronal and oblique reconstruction images were generated and reviewed. Exam utilizes a protocol for optimal evaluation of pulmonary arterial tree. Maximum intensity projections 3D imaging was utilized All CT scans are performed using dose optimization technique as appropriate and may include automated exposure control or mA/KV adjustment according to patient size. FINDINGS: A pulmonary embolus is not seen. A thoracic aortic aneurysm is not noted. A pleural effusion is not seen. A pericardial effusion is not seen. A lung consolidation is not present. Fatty liver IMPRESSION: Negative for a pulmonary embolism.
--- NOTE | 2019-07-29 18:55 | RAD REPORT ---
EXAM DESCRIPTION: [facility] Single View07/29/2019 5:17 pm CLINICAL HISTORY: Chest pain COMPARISON: 2018 FINDINGS: The lungs appear clear of acute infiltrate. The heart is borderline enlarged IMPRESSION: No acute abnormalities displayed
--- NOTE | 2019-07-29 19:06 | ER ---
Nurse's Notes [facility] Name: Dick Del Rio Age: 28 yrs Sex: Male : 1990 Arrival Date: 07/29/2019 Time: 16:23 Bed 6 Private MD: Diagnosis: Chest pain, unspecified;Hypertensive heart disease Presentation: 07/29 16:29 Presenting complaint: Patient states: off loading something and got sharp chest pain in the middle, happens when I move. feels almost like heartburn, I had spicy food earlier. i took tums but it didn't help. Transition of care: patient was not received from another setting of care. Onset of symptoms was July 29, 2019 at 15:30. Risk Assessment: Do you want to hurt yourself or someone else? Patient reports no desire to harm self or others. Initial Sepsis Screen: Does the patient meet any 2 criteria? No. Patient's initial sepsis screen is negative. Does the patient have a suspected source of infection? No. Patient's initial sepsis screen is negative. Care prior to arrival: None. 16:29 Method Of Arrival: Ambulatory 16:29 Acuity: JENIFER 2 Triage Assessment: 16:31 General: Appears in no apparent distress. comfortable, Behavior is calm, cooperative, ch appropriate for age. Pain: Complains of pain in chest. Cardiovascular: Reports chest pain. Historical: - Allergies: 16:31 No Known Allergies; - Home Meds: 16:31 metoprolol tartrate 50 mg Oral tab 1 tab once daily [Active]; lisinopril 20 mg Oral tab ch 1 tab once daily [Active]; - PMHx: 16:31 Hypertension; - PSHx: 16:31 gastric sleeve; - Immunization history:: Adult Immunizations up to date, Flu vaccine is not up to date. - Social history:: Smoking status: Patient/guardian denies using tobacco, Patient uses alcohol, occasionally. Patient/guardian denies using street drugs. - Ebola Screening: : Patient negative for fever greater than or equal to 101.5 degrees Fahrenheit, and additional compatible Ebola Virus Disease symptoms Patient denies exposure to infectious person Patient denies travel to an Ebola-affected area in the 21 days before illness onset No symptoms or risks identified at this time. Screenin:00 Abuse screen: Denies threats or abuse. Denies injuries from another. Nutritional bp screening: No deficits noted. Tuberculosis screening: No symptoms or risk factors identified. Fall Risk None identified. Assessment: 16:33 General: SEE TRIAGE NOTE. bp 17:30 Reassessment: PT HYPERTENSIVE ON MONITOR, NO CHANGE IN CHEST PAIN. bp 18:54 Reassessment: PT RETURNED FROM CT. CT RESULTS PENDING. bp 19:15 General: Appears in no apparent distress. comfortable, Behavior is calm, cooperative, rr5 appropriate for age, ED provider for discharge once the target systolic BP around 170.. Pain: Denies pain. Neuro: Level of Consciousness is awake, alert, obeys commands, Oriented to person, place, time, situation, Appropriate for age. Cardiovascular: Reports chest pain, Capillary refill < 3 seconds Patient's skin is warm and dry. Respiratory: Airway is patent Respiratory effort is even, unlabored, Respiratory pattern is regular, symmetrical. GI: No signs and/or symptoms were reported involving the gastrointestinal system. : No signs and/or symptoms were reported regarding the genitourinary system. EENT: No signs and/or symptoms were reported regarding the EENT system. Derm: Skin is intact, is healthy with good turgor, Skin temperature is warm. Musculoskeletal: Circulation, motion, and sensation intact. Capillary refill < 3 seconds. 19:52 Reassessment: Patient appears in no apparent distress at this time. Patient is alert, rr5 oriented x 3, equal unlabored respirations, skin warm/dry/pink. BP result informed ED provider with order made and carried out. 20:30 Reassessment: Patient appears in no apparent distress at this time. No changes from rr5 previously documented assessment. Patient is alert, oriented x 3, equal unlabored respirations, skin warm/dry/pink. no complaints made. 21:50 Reassessment: Patient appears in no apparent distress at this time. Patient is alert, rr5 oriented x 3, equal unlabored respirations, skin warm/dry/pink. discharge instruction given and explained without complaints made, verbalized understading. Patient states feeling better. Patient states symptoms have improved. Vital Signs: 16:31 BP 222 / 131; Pulse 74; Resp 22; Temp 97.9; Pulse Ox 99% on R/A; Weight 133.81 kg; ch Height 5 ft. 9 in. (175.26 cm); Pain 0/10; 16:41 BP 198 / 116 LA Sitting; ch 17:52 BP 189 / 122; Pulse 69; Resp 16; Pulse Ox 99% ; bp 18:14 BP 185 / 112; Pulse 67; Resp 16; Pulse Ox 100% ; bp 18:25 BP 185 / 121; Pulse 69; Resp 16; Pulse Ox 100% ; bp 19:15 BP 192 / 117; Pulse 76; Resp 19; Temp 98; Pulse Ox 99% ; rr5 19:52 BP 190 / 107; Pulse 75; Resp 17; Pulse Ox 98% ; rr5 20:20 BP 189 / 113; Pulse 80; Resp 17; Pulse Ox 98% ; rr5 21:00 BP 171 / 112; Pulse 79; Resp 18; Pulse Ox 98% ; rr5 21:20 BP 169 / 103; Pulse 85; Resp 17; Pulse Ox 98% on R/A; rr5 21:45 BP 167 / 109; Pulse 79; Resp 19; Temp 98.3; Pulse Ox 97% on R/A; rr5 16:31 Body Mass Index 43.56 (133.81 kg, 175.26 cm) ED Course: 16:23 Patient arrived in ED. as 16:30 Triage completed. ch 16:31 Arm band placed on left wrist. Patient placed in an exam room, on a stretcher. ch 16:36 Damien Calderon MD is Attending Physician. kdr 17:00 Patient has correct armband on for positive identification. Bed in low position. Call bp light in reach. Side rails up X2. Adult w/ patient. 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 Pulse ox on. NIBP on. 17:00 Patient maintains SpO2 saturation greater than 95% on room air. bp 17:16 Ernesto Rico, RN is Primary Nurse. bp 17:18 XRAY Chest (1 view) In Process Unspecified. EDMS 17:30 Inserted saline lock: 20 gauge in right antecubital area, using aseptic technique. bp Blood collected. 18:44 CT Chest Angio In Process Unspecified. EDMS 21:50 No provider procedures requiring assistance completed. IV discontinued, intact, rr5 bleeding controlled, No redness/swelling at site. Pressure dressing applied. Administered Medications: 17:42 Drug: Lopressor 5 mg Route: IVP; Site: right antecubital; bp 17:52 Drug: Lopressor 5 mg Route: IVP; Site: right antecubital; bp 18:14 Drug: Lopressor 5 mg Route: IVP; Site: right antecubital; bp 18:25 Follow up: Response: No adverse reaction bp 19:17 Drug: hydrALAZINE 10 mg Route: IV; Rate: calculated rate; Site: right antecubital; rr5 20:00 Follow up: Response: No adverse reaction; Blood pressure is elevated; IV Status: rr5 Completed infusion 19:55 Drug: cloNIDine 0.2 mg Route: PO; rr5 20:50 Follow up: Response: No adverse reaction; Blood pressure is lowered rr5 20:20 CANCELLED (Physician Discretion): cloNIDine 0.2 mg PO once tw4 Outcome: 19:04 Discharge ordered by . kdr 21:50 Discharged to home ambulatory. rr5 21:50 Condition: stable 21:50 Discharge instructions given to patient, Instructed on discharge instructions, follow up and referral plans. Demonstrated understanding of instructions, follow-up care. 21:51 Patient left the ED. rr5 Signatures: Dispatcher [employer] EDMS Ashleigh Baldwin, NARCISA BREWSTER Damien Calderon MD MD kdr Martinez, Amelia as Peltier, Brian, RN RN bp Henry Daniel RN RN rr5 Zack Badillo MD tw4 Corrections: (The following items were deleted from the chart) 16:41 16:29 Acuity: JENIFER 3 ch 21:10 21:00 BP 101 / 58; Pulse 120bpm; Resp 19bpm; Pulse Ox 98% 4 lpm Nasal Cannula; rr5 rr5 21:10 20:35 BP 105 / 56; Pulse 154bpm; Resp 20bpm; Pulse Ox 97% 4 lpm Nasal Cannula; rr5 rr5 21:10 20:50 BP 106 / 61; Pulse 138bpm; Resp 20bpm; Pulse Ox 96% 4 lpm Nasal Cannula; rr5 rr5
--- NOTE | 2019-07-29 19:07 | EDPHYS ---
Physician Documentation [facility] Name: Dick Del Rio Age: 28 yrs Sex: Male : 1990 Arrival Date: 07/29/2019 Time: 16:23 Bed 6 Private MD: ED Physician Damien aClderon HPI: 07/29 17:55 This 28 yrs old Male presents to ER via Ambulatory with complaints of Chest kdr Pain. 17:55 The patient or guardian reports chest pain that is located primarily in the substernal kdr area. The pain does not radiate. Associated signs and symptoms: The patient has no apparent associated signs or symptoms. The chest pain is described as aching, sharp. Duration: The patient or guardian reports a single episode, that is now resolved. Modifying factors: The symptoms are alleviated by nothing. the symptoms are aggravated by nothing. Severity of pain: At its worst the pain was moderate in the emergency department the pain has resolved. The patient has not experienced similar symptoms in the past. The patient has not recently seen a physician. 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 It lasted for approximately 30 minutes and resolved completely shortly after arrival. The patient has a history of HTN and takes medications for this condition and denies missing any doses though he did have a delayed dose today. He denies chest pain that is "stabbing" through to his back and has not had any focal peripheral neurological deficits nor headache.. Historical: - Allergies: 16:31 No Known Allergies; ch - Home Meds: 16:31 metoprolol tartrate 50 mg Oral tab 1 tab once daily [Active]; lisinopril 20 mg Oral tab ch 1 tab once daily [Active]; - PMHx: 16:31 Hypertension; ch - PSHx: 16:31 gastric sleeve; ch - Immunization history:: Adult Immunizations up to date, Flu vaccine is not up to date. - Social history:: Smoking status: Patient/guardian denies using tobacco, Patient uses alcohol, occasionally. Patient/guardian denies using street drugs. - Ebola Screening: : Patient negative for fever greater than or equal to 101.5 degrees Fahrenheit, and additional compatible Ebola Virus Disease symptoms Patient denies exposure to infectious person Patient denies travel to an Ebola-affected area in the 21 days before illness onset No symptoms or risks identified at this time. ROS: 17:55 Constitutional: Negative for fever, chills, and weight loss, Eyes: Negative for injury, kdr pain, redness, and discharge, ENT: Negative for injury, pain, and discharge, Neck: Negative for injury, pain, and swelling, Respiratory: Negative for shortness of breath, cough, wheezing, and pleuritic chest pain, Abdomen/GI: Negative for abdominal pain, nausea, vomiting, diarrhea, and constipation, Back: Negative for injury and pain, : Negative for injury, bleeding, discharge, and swelling, MS/Extremity: Negative for injury and deformity, Skin: Negative for injury, rash, and discoloration, Neuro: Negative for headache, weakness, numbness, tingling, and seizure activity. Psych: Negative for depression, anxiety, suicide ideation, homicidal ideation, and hallucinations, Allergy/Immunology: Negative for hives, rash, and allergies, Endocrine: Negative for neck swelling, polydipsia, polyuria, polyphagia, and marked weight changes, Hematologic/Lymphatic: Negative for swollen nodes, abnormal bleeding, and unusual bruising. 17:55 Cardiovascular: Positive for chest pain, of the mid-sternal area. Exam: 17:55 Constitutional: This is a well developed, well nourished patient who is awake, alert, kdr and in no acute distress. Head/Face: Normocephalic, atraumatic. Eyes: Pupils equal round and reactive to light, extra-ocular motions intact. Lids and lashes normal. Conjunctiva and sclera are non-icteric and not injected. Cornea within normal limits. Periorbital areas with no swelling, redness, or edema. Neck: Trachea midline, no thyromegaly or masses palpated, and no cervical lymphadenopathy. Supple, full range of motion without nuchal rigidity, or vertebral point tenderness. No Meningismus. Chest/axilla: Normal chest wall appearance and motion. Nontender with no deformity. No lesions are appreciated. Cardiovascular: Regular rate and rhythm with a normal S1 and S2. No gallops, murmurs, or rubs. Normal PMI, no JVD. No pulse deficits. Respiratory: Lungs have equal breath sounds bilaterally, clear to auscultation and percussion. No rales, rhonchi or wheezes noted. No increased work of breathing, no retractions or nasal flaring. Abdomen/GI: Soft, non-tender, with normal bowel sounds. No distension or tympany. No guarding or rebound. No evidence of tenderness throughout. Back: No spinal tenderness. No costovertebral tenderness. Full range of motion. Skin: Warm, dry with normal turgor. Normal color with no rashes, no lesions, and no evidence of cellulitis. MS/ Extremity: Pulses equal, no cyanosis. Neurovascular intact. Full, normal range of motion. Neuro: Awake and alert, GCS 15, oriented to person, place, time, and situation. Cranial nerves II-XII grossly intact. Motor strength 5/5 in all extremities. Sensory grossly intact. Cerebellar exam normal. Normal gait. Psych: Awake, alert, with orientation to person, place and time. Behavior, mood, and affect are within normal limits. Vital Signs: 16:31 BP 222 / 131; Pulse 74; Resp 22; Temp 97.9; Pulse Ox 99% on R/A; Weight 133.81 kg; ch Height 5 ft. 9 in. (175.26 cm); Pain 0/10; 16:41 BP 198 / 116 LA Sitting; ch 17:52 BP 189 / 122; Pulse 69; Resp 16; Pulse Ox 99% ; bp 18:14 BP 185 / 112; Pulse 67; Resp 16; Pulse Ox 100% ; bp 18:25 BP 185 / 121; Pulse 69; Resp 16; Pulse Ox 100% ; bp 19:15 BP 192 / 117; Pulse 76; Resp 19; Temp 98; Pulse Ox 99% ; rr5 19:52 BP 190 / 107; Pulse 75; Resp 17; Pulse Ox 98% ; rr5 20:20 BP 189 / 113; Pulse 80; Resp 17; Pulse Ox 98% ; rr5 21:00 BP 171 / 112; Pulse 79; Resp 18; Pulse Ox 98% ; rr5 21:20 BP 169 / 103; Pulse 85; Resp 17; Pulse Ox 98% on R/A; rr5 21:45 BP 167 / 109; Pulse 79; Resp 19; Temp 98.3; Pulse Ox 97% on R/A; rr5 16:31 Body Mass Index 43.56 (133.81 kg, 175.26 cm) MDM: 17:55 HEART Score: History: Slightly Suspicious (0), ECG: Normal (0), Age: < or = 45 years kdr (0), Risk Factors: 1 or 2 risk factors (1), Troponin: < or = 1 x Normal Limit (0), Total Score = 2. Data reviewed: vital signs, nurses notes. ED course: Given the SBP of 216, will r/o dissection. 19:04 Patient medically screened. [facility] 07/29 16:44 Order name: Basic Metabolic Panel; Complete Time: 18:54 kdr 07/29 16:44 Order name: CBC with Diff; Complete Time: 18:54 kdr 07/29 16:44 Order name: LFT's; Complete Time: 18:54 kdr 07/29 16:44 Order name: Magnesium; Complete Time: 18:54 kdr 07/29 16:44 Order name: NT PRO-BNP; Complete Time: 18:54 kdr 07/29 16:44 Order name: PT-INR; Complete Time: 18:54 kdr 07/29 16:44 Order name: Troponin (emerg Dept Use Only); Complete Time: 18:54 kdr 07/29 16:44 Order name: XRAY Chest (1 view); Complete Time: 19:03 kdr 07/29 16:44 Order name: EKG; Complete Time: 16:45 kdr 07/29 17:33 Order name: CT Chest Angio; Complete Time: 19:03 kdr 07/29 16:44 Order name: Cardiac monitoring; Complete Time: 17:32 kdr 07/29 16:44 Order name: EKG - Nurse/Tech; Complete Time: 17:32 kdr 07/29 16:44 Order name: IV Saline Lock; Complete Time: 17:32 kdr 07/29 16:44 Order name: Labs collected and sent; Complete Time: 17:32 kdr 07/29 16:44 Order name: O2 Per Protocol; Complete Time: 17:32 kdr 07/29 16:44 Order name: O2 Sat Monitoring; Complete Time: 17:33 kdr Administered Medications: 17:42 Drug: Lopressor 5 mg Route: IVP; Site: right antecubital; bp 17:52 Drug: Lopressor 5 mg Route: IVP; Site: right antecubital; bp 18:14 Drug: Lopressor 5 mg Route: IVP; Site: right antecubital; bp 18:25 Follow up: Response: No adverse reaction bp 19:17 Drug: hydrALAZINE 10 mg Route: IV; Rate: calculated rate; Site: right antecubital; rr5 20:00 Follow up: Response: No adverse reaction; Blood pressure is elevated; IV Status: rr5 Completed infusion 19:55 Drug: cloNIDine 0.2 mg Route: PO; rr5 20:50 Follow up: Response: No adverse reaction; Blood pressure is lowered rr5 20:20 CANCELLED (Physician Discretion): cloNIDine 0.2 mg PO once tw4 Disposition: 07/29/19 19:04 Discharged to Home. Impression: Chest pain, unspecified, Hypertensive heart disease. - Condition is Stable. - Discharge Instructions: Nonspecific Chest Pain, [id number], Hypertension, [id number]. - Medication Reconciliation Form, Thank You Letter form. - Follow up: Private Physician; When: 2 - 3 days; Reason: If symptoms return, Further diagnostic work-up, Recheck today's complaints, Continuance of care, Re-evaluation by your physician. - Problem is new. - Symptoms have improved. - Notes: Continue your current medications Signatures: Dispatcher [employer] ED[facility] Ashleigh Baldwin, RN RN Damien Calderon MD MD [facility] Ernesto Rico RN RN bp Wadley, Terrence, MD MD tw4 Henry Daniel RN RN rr5 Corrections: (The following items were deleted from the chart) 20:20 20:20 cloNIDine 0.2 mg PO once ordered. tw4 tw4 21:51 19:04 07/29/2019 19:04 Discharged to Home. Impression: Chest pain, unspecified; rr5 Hypertensive heart disease. Condition is Stable. Forms are Medication Reconciliation Form, Thank You Letter, Antibiotic Education, Prescription Opioid Use. Follow up: Private Physician; When: 2 - 3 days; Reason: If symptoms return, Further diagnostic work-up, Recheck today's complaints, Continuance of care, Re-evaluation by your physician. Problem is new. Symptoms have improved. kdr
[2019-07-29] MEDS ORDERED: HYDRALAZINE HCL 20 MG/ML VIAL ONE (19:13)
[2019-07-29] MEDS ORDERED: cloNIDine HCL 0.1 MG TAB ONE (19:56)
[2019-07-29 22:22] VITALS: BP 167/109; TEMP 98.3; O2SAT 97
--- NOTE | 2019-07-31 11:47 | EKG ---
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
== END 2019-07-29 21:51 | disposition home or self-care (01) ==
LOC: ER 16:22
DX: I11.9 Hypertensive heart disease without heart failure (principal); I10 Essential (primary) hypertension
CPT/HCPCS: 96365; 93005; 85025; 80048; 36415; 83735; 85610; 80076; 84484; 83880; 71275; 71045; 96375; 99285; Q9967; J0360